=== PATIENT | male | born 1950 | race Caucasian/White ===

== ENCOUNTER 2023-11-13 12:25 | Outpatient (CLI) | payer MEDICARE | END 2023-11-13 12:26 | disposition home or self-care (01) | LOC: BICMRI 12:25 | PROVIDERS: ATTEND Psychiatry & Neurology Neurology | DX: G20.C Parkinsonism, unspecified (principal); R93.0 Abnormal findings on diagnostic imaging of skull and head, not elsewhere classified; J32.0 Chronic maxillary sinusitis; R90.82 White matter disease, unspecified; M47.812 Spondylosis without myelopathy or radiculopathy, cervical region | CPT/HCPCS: 70551 ==

== ENCOUNTER 2024-02-27 07:48 | Outpatient (CLI) | payer MEDICARE | END 2024-02-27 07:49 | disposition home or self-care (01) | LOC: NM 07:48 | PROVIDERS: ATTEND Psychiatry & Neurology Neurology | DX: G20.A1 Parkinson's disease without dyskinesia, without mention of fluctuations (principal) | CPT/HCPCS: 78803; A9584 ×2 ==